=== PATIENT | female | born 1935 | race Caucasian/White ===

== ENCOUNTER 2020-05-24 13:12 | Inpatient (IN) ==
[2020-05-24] MEDS ORDERED: Aspirin EC 81 mg TAB.EC (enteric coated) PO ONE (13:27)
[2020-05-24] MEDS ORDERED: Ondansetron 4 mg VIAL 2 MG/ML 2 ml VIAL ONE (13:48)
[2020-05-24] MEDS ORDERED: Ondansetron 4 mg VIAL 2 MG/ML 2 ml VIAL IV ONE (13:50)
[2020-05-24 14:12] LABS: ABS Lymphocytes 1.7 10^3/ul (1.0-4.8); ABS Monocytes 0.8 10^3/ul (0-0.8); ABS Neutrophils 5.1 10^3/ul (1.5-7.7); Eosinophil % 0.3 %; Hematocrit 37 % (35-47); Hemoglobin 12.3 g/dL (12.0-16.0); Lymphocyte % 22.8 %; Mean Corpuscular HGB Conc 34 g/dL (31-36); Mean Corpuscular Hemoglobin 28 pg (27-31); Mean Corpuscular Volume 82 fL (80-97); Mean Platelet Volume 7.9 fL (7.4-10.4); Nucleated Red Blood Cells % 0.1; Platelet Count 279 10^3/uL (150-450); Red Blood Count 4.46 10^6 /uL (3.70-4.87); Red Cell Distribution Width 15 % (10-15); White Blood Count 7.7 10^3/uL (3.5-10.8)
[2020-05-24 14:28] LABS: ALT 14 U/L (7-52); AST 25 U/L (13-39); Albumin 4.3 g/dL (3.2-5.2); Albumin/Globulin Ratio 1.7 (1-3); Alkaline Phosphatase 64 U/L (34-104); Anion Gap 13 mmol/L (2-11); BUN/Creatinine Ratio 18.9 (8-20); Blood Urea Nitrogen 17 mg/dL (6-24); CO2 Carbon Dioxide 23 mmol/L (22-32); Calcium 9.9 mg/dL (8.6-10.3); Chloride 102 mmol/L (101-111); EGFR African American 72.4 (>60); EGFR Non-African American 59.8 (>60); Globulin 2.6 g/dL (2-4); Glucose 102 mg/dL (70-100); Sodium 138 mmol/L (135-145); Total Protein 6.9 g/dL (6.4-8.9)
[2020-05-24 14:34] LABS: INR 1.02 (0.82-1.09)
[2020-05-24] MEDS ORDERED: Iodixanol (CONTRAST) 320 MG/ML 100 ML SDV IV ONE (14:37)
[2020-05-24 14:43] LABS: Troponin I 0.32 ng/mL (<0.03)
[2020-05-24 15:08] LABS: TSH Ultra Thyroid Stim Horm 2.73 mcIU/mL (0.34-5.60)
[2020-05-24 16:15] LABS: CKMB ng/mL 5.3 ng/mL (0.6-6.3)
[2020-05-24] MEDS ORDERED: Potassium Chlor 20 meq TAB.ER PO ONE (16:54)
[2020-05-24] MEDS ORDERED: Heparin DRIP 25,000 UNITS BAG 25,000 UNITS/500 ML BAG IV SCH (17:00)
[2020-05-24] MEDS ORDERED: Heparin 5000 UNITS/ML 1 mL VIAL IV SCH (17:00)
[2020-05-24] MEDS: KCL 10 MEQ/50 ML IVPREMIX 10 MEQ/50 ML BAG IV SCH (17:26)
[2020-05-24 17:56] LABS: Troponin I 1.37 ng/mL (<0.03)
[2020-05-24 19:20] LABS: Troponin I 1.22 ng/mL (<0.03)
[2020-05-24 22:59] LABS: BUN/Creatinine Ratio 18.3 (8-20); Calcium 9.9 mg/dL (8.6-10.3); EGFR African American 69.7 (>60); EGFR Non-African American 57.6 (>60); Potassium 3.1 mmol/L (3.5-5.0)
[2020-05-25 05:08] LABS: ABS Lymphocytes 2.3 10^3/ul (1.0-4.8); ABS Monocytes 0.8 10^3/ul (0-0.8); ABS Neutrophils 2.7 10^3/ul (1.5-7.7); Eosinophil % 0.5 %; Hematocrit 34 % (35-47); Hemoglobin 11.4 g/dL (12.0-16.0); Lymphocyte % 38.7 %; Mean Corpuscular HGB Conc 34 g/dL (31-36); Mean Corpuscular Hemoglobin 28 pg (27-31); Mean Corpuscular Volume 83 fL (80-97); Mean Platelet Volume 8.3 fL (7.4-10.4); Platelet Count 266 10^3/uL (150-450); Red Blood Count 4.07 10^6 /uL (3.70-4.87); Red Cell Distribution Width 15 % (10-15); White Blood Count 5.8 10^3/uL (3.5-10.8)
[2020-05-25 05:30] LABS: Anion Gap 8 mmol/L (2-11); BUN/Creatinine Ratio 17.2 (8-20); Blood Urea Nitrogen 17 mg/dL (6-24); CO2 Carbon Dioxide 26 mmol/L (22-32); Calcium 9.4 mg/dL (8.6-10.3); Chloride 108 mmol/L (101-111); EGFR African American 64.8 (>60); EGFR Non-African American 53.6 (>60); Glucose 90 mg/dL (70-100); Potassium 3.7 mmol/L (3.5-5.0); Sodium 142 mmol/L (135-145)
[2020-05-25 07:49] LABS: Activated Partial Thrombo Time 72.6 seconds (26.0-38.0)
[2020-05-25] MEDS ORDERED: NS 0.9% 1000 ml BAG 1,000 ML IV SCH ×2 (09:00→10:30)
[2020-05-25] MEDS ORDERED: Iodixanol 320 (CONTRAST) 100 ML SDV ONE (09:10)
[2020-05-25] MEDS ORDERED: Heparin 2 UNITS/ML 1000 mls 2,000 ML IV ONE (09:10)
[2020-05-25 09:11] LABS: Cholesterol 230 mg/dL; HDL Cholesterol 64.3 mg/dL; LDL Cholesterol 152 mg/dL; Triglycerides 67 mg/dL
[2020-05-25] MEDS ORDERED: Lidocaine 1% VIAL 10 MG/ML VIAL ONE (09:11)
[2020-05-25] MEDS ORDERED: fentaNYL 100 mcg/2 ml 50 MCG/ML VIAL ONE (09:35)
[2020-05-25] MEDS ORDERED: Midazolam 5 mg/5 ml VIAL 1 mg/ml 5 ml VIAL (5 mg) ONE (09:35)
[2020-05-25] MEDS ORDERED: Heparin 1,000 UNIT/ML 10 ml (10,000 UNITS) CATHLAB/DIALYSIS ONE (09:35)
[2020-05-25] MEDS ORDERED: VERAPAMIL 2.5 MG/ML 2 ML VIAL ** 5 mg/2 ml ONE (09:35)
[2020-05-25] MEDS ORDERED: nitroGLYCERIN DRIP 25,000 MCG/250 ML BTL ONE (09:36)
[2020-05-25 09:45] LABS: Troponin I 0.86 ng/mL (<0.03)
[2020-05-25 13:31] LABS: ABS Lymphocytes 1.8 10^3/ul (1.0-4.8); ABS Monocytes 0.6 10^3/ul (0-0.8); ABS Neutrophils 3.1 10^3/ul (1.5-7.7); Eosinophil % 0.3 %; Hematocrit 35 % (35-47); Hemoglobin 11.6 g/dL (12.0-16.0); Lymphocyte % 32.9 %; Mean Corpuscular HGB Conc 33 g/dL (31-36); Mean Corpuscular Hemoglobin 28 pg (27-31); Mean Corpuscular Volume 84 fL (80-97); Mean Platelet Volume 7.7 fL (7.4-10.4); Platelet Count 287 10^3/uL (150-450); Red Blood Count 4.18 10^6 /uL (3.70-4.87); Red Cell Distribution Width 15 % (10-15); White Blood Count 5.6 10^3/uL (3.5-10.8)
[2020-05-25 14:06] LABS: INR 1.18 (0.82-1.09)
[2020-05-25] MEDS: Colestipol 1 gm TAB (NF) PO SCH (21:09)
[2020-05-25] MEDS: Heparin 5000 UNITS/ML 1 mL VIAL SUBCUT SCH (21:21)
[2020-05-26 06:15] LABS: ABS Eosinophils 0.1 10^3/ul (0-0.6); ABS Lymphocytes 1.7 10^3/ul (1.0-4.8); ABS Monocytes 0.8 10^3/ul (0-0.8); ABS Neutrophils 2.9 10^3/ul (1.5-7.7); Hematocrit 32 % (35-47); Lymphocyte % 31.2 %; Mean Corpuscular HGB Conc 34 g/dL (31-36); Mean Corpuscular Hemoglobin 28 pg (27-31); Mean Corpuscular Volume 83 fL (80-97); Mean Platelet Volume 8.2 fL (7.4-10.4); Platelet Count 226 10^3/uL (150-450); Red Blood Count 3.91 10^6 /uL (3.70-4.87); Red Cell Distribution Width 16 % (10-15); White Blood Count 5.5 10^3/uL (3.5-10.8)
[2020-05-26 06:17] LABS: Albumin 3.8 g/dL (3.2-5.2); Albumin/Globulin Ratio 1.9 (1-3); BUN/Creatinine Ratio 25.3 (8-20); Calcium 9.3 mg/dL (8.6-10.3); EGFR African American 79.4 (>60); EGFR Non-African American 65.7 (>60); HDL Cholesterol 54.6 mg/dL; Total Bilirubin 0.5 mg/dL (0.2-1.0); Total Protein 5.8 g/dL (6.4-8.9)
[2020-05-26] MEDS: Heparin 5000 UNITS/ML 1 mL VIAL SUBCUT SCH (06:32)
[2020-05-26] MEDS ORDERED: Potassium Chloride LIQUID 20 MEQ/15 ML LIQUID PO ONE (08:44)
[2020-05-26] MEDS: Colestipol 1 gm TAB (NF) PO SCH (08:50)
[2020-05-26 12:46] VITALS: BP 119/59
== END 2020-05-26 16:08 | disposition home or self-care (01) | DRG 287 ==
LOC: ED 13:12 → MEDTELE 16:38
PROVIDERS: ADMIT Hospitalist; ATTEND Hospitalist

== ENCOUNTER 2022-08-13 19:50 | Observation (INO) ==
[2022-08-13 21:19] LABS: ABS Lymphocytes 1.4 10^3/ul (1.0-4.8); ABS Monocytes 1.3 10^3/ul (0-0.8); ABS Neutrophils 10.2 10^3/ul (1.5-7.7); Eosinophil % 0.3 %; Hematocrit 34 % (35-47); Hemoglobin 11.2 g/dL (12.0-16.0); Lymphocyte % 10.6 %; Mean Corpuscular HGB Conc 33 g/dL (31-36); Mean Corpuscular Hemoglobin 28 pg (27-31); Mean Corpuscular Volume 84 fL (80-97); Mean Platelet Volume 7.5 fL (7.4-10.4); Platelet Count 273 10^3/uL (150-450); Red Blood Count 4.01 10^6 /uL (3.70-4.87); Red Cell Distribution Width 15 % (10-15)
[2022-08-13 21:54] LABS: Albumin 4.1 g/dL (3.2-5.2); Albumin/Globulin Ratio 1.7 (1-3); C Reactive Protein 53.21 mg/L (<8.01); Calcium 9.3 mg/dL (8.6-10.3); Creatinine, Serum 0.91 mg/dL (0.51-0.95); Globulin 2.4 g/dL (2-4); Potassium 4.5 mmol/L (3.5-5.0); Total Bilirubin 0.7 mg/dL (0.2-1.0); Total Protein 6.5 g/dL (6.4-8.9); eGFR CKD-EPI 61.8 (>60)
[2022-08-13 21:59] LABS: Urine Appearance Clear; Urine Bilirubin Negative (Negative); Urine Blood Negative (Negative); Urine Color Yellow; Urine Glucose Negative (Negative); Urine Ketones Trace (Negative); Urine Nitrite Negative (Negative); Urine Protein Negative (Negative); Urine Specific Gravity 1.013 (1.002-1.030); Urine Urobilinogen Negative (Negative)
[2022-08-13] MEDS ORDERED: Iohexol 350 (CONTRAST) 500 ML MDV IV ONE (22:00)
[2022-08-14] MEDS ORDERED: NS 0.9% 1000 ml BAG 1,000 ML IV ONE (00:01)
[2022-08-14] MEDS ORDERED: Morphine 4 MG/ML VIAL (1 ml) IV ONE (00:44)
[2022-08-14] MEDS ORDERED: Piperacillin/Tazobac ADVAN 3.375 GM in NS 0.9% 100 ml BAG 100 ML IV ONE (01:42)
[2022-08-14] MEDS ORDERED: HYDROmorphone 1 MG/1 ML SYRINGE IV SLOW PU PRN (01:42)
[2022-08-14] MEDS ORDERED: Ondansetron 4 mg VIAL 2 MG/ML 2 ml VIAL IV PRN ×2 (01:42→15:28)
[2022-08-14] MEDS ORDERED: D5W 1/2 NS KCl 20 meq 1000 ml 1,000 ML IV SCH (02:00)
[2022-08-14] MEDS ORDERED: Piperacillin/Tazobac 3.375 GM BAG ONE (02:54)
[2022-08-14] MEDS: metroNIDAZOLE IV 500 MG/100ML 100 ML IVPB SCH ×3 (03:48→18:28)
[2022-08-14] MEDS ORDERED: Cefepime 2 GM in NS 0.9% 50 ML 50 ML IVPB SCH (04:00)
[2022-08-14] MEDS: Morphine 4 MG/ML VIAL (1 ml) IV PRN ×2 (06:19→08:21)
[2022-08-14] MEDS ORDERED: Rocuronium 50 mg VIAL 10 mg/ml 5 ml VIAL (50 mg) ONE (13:29)
[2022-08-14] MEDS ORDERED: Propofol 10 MG/ML 20 ML BTL ONE (13:29)
[2022-08-14] MEDS ORDERED: Lidocaine 2% PF 5 ML VIAL ONE (13:29)
[2022-08-14] MEDS ORDERED: Ondansetron 4 mg VIAL 2 MG/ML 2 ml VIAL ONE ×2 (13:29→16:10)
[2022-08-14] MEDS ORDERED: Dexamethasone IV 4 MG/ML VIAL 1 ml VIAL ONE (13:29)
[2022-08-14] MEDS ORDERED: fentaNYL 100 mcg/2 ml 50 MCG/ML VIAL ONE (13:30)
[2022-08-14] MEDS ORDERED: Midazolam 2 mg/2 ml VIAL 1 mg/ml 2 ml VIAL (2 mg) ONE (13:30)
[2022-08-14] MEDS ORDERED: Bupivacaine 0.25% EPI 200,000 30 ML SDV ONE (13:31)
[2022-08-14] MEDS ORDERED: Phenylephrine 40 mcg/mL 10mL (400mcg) SYRINGE ONE (13:31)
[2022-08-14] MEDS ORDERED: Acetaminophen IV 1 GM/100ML 1,000 MG/100 ML BAG IV ONE (14:23)
[2022-08-14] MEDS ORDERED: Sugammadex 500 MG/5 ML 5 ml VIAL IV PUSH ONE (14:46)
[2022-08-14] MEDS ORDERED: Naloxone 0.4 mg VIAL 0.4 mg/ml 1 ml VIAL IV PRN (15:28)
[2022-08-14] MEDS ORDERED: fentaNYL 100 mcg/2 ml 50 MCG/ML VIAL IV PRN (15:28)
[2022-08-14] MEDS: Cefepime 2 GM in Dextrose 2 GM/50 ML BAG IV SCH (17:40)
[2022-08-15] MEDS: metroNIDAZOLE IV 500 MG/100ML 100 ML IVPB SCH ×2 (03:27→09:35)
[2022-08-15] MEDS: Cefepime 2 GM in Dextrose 2 GM/50 ML BAG IV SCH (05:16)
[2022-08-15] MEDS: Morphine 4 MG/ML VIAL (1 ml) IV PRN (07:50)
[2022-08-15] MEDS ORDERED: Mirabegron 50 mg ER TAB (NF) PO SCH (09:00)
[2022-08-15 11:08] VITALS: BP 130/69
== END 2022-08-15 11:30 | disposition home or self-care (01) ==
LOC: ED 19:50 → EDHOLD 19:50 → SSU 08-14 16:45
PROVIDERS: ADMIT Surgery; ATTEND Surgery